=== PATIENT | female | born 2000 | race Caucasian/White ===

== ENCOUNTER 2022-01-04 14:10 | Emergency (ER) | payer MEDICAID ==
[~2022-01-04] VITALS: Ht 157.5 cm; Wt 59.0 kg
[2022-01-04 14:15] VITALS: BP_SYST 113
--- NOTE | 2022-01-04 14:20 | NUR ---
Patient triaged and placed in waiting room. VSS and patient appears in no acute distress at this time. Accompanied by FRIENDS, awaiting available bed, and MD notified of need for MSE.
--- NOTE | 2022-01-04 14:29 | NUR ---
PT STATES COUGH, DIZZY, FEVERS, AND SORE THROAT FROM COUGHING. PT STATES SHE LIVES IN THE [place]ORMS AT [facility] [employer] AND EVERYONE THERE IS SICK. PT STATES SHE JUST DOESN'T SEEM TO BE GETTING BETTER.
--- NOTE | 2022-01-04 16:01 | NUR ---
DR COSME OUT TO TRIAGE ROOM FOR RE-EVALUATION
[2022-01-04] MEDS ORDERED: IBUP-1969 PO (16:13)
[2022-01-04] MEDS ORDERED: PSEU30TA36 PO (16:13)
--- NOTE | 2022-01-04 16:26 | NUR ---
Patient given written and verbal discharge instructions and verbalizes understanding. ER MD discussed with patient the results and treatment provided. Patient in stable condition. ID arm band removed. Rx of IBUPROFEN, SUDAFED given. Patient educated on pain management and to follow up with PMD. Pain Scale 0/10. Opportunity for questions provided and answered. Medication side effect fact sheet provided.
== END 2022-01-04 17:15 | disposition home or self-care (01) ==
LOC: SED 14:10
DX: J40 Bronchitis, not specified as acute or chronic (principal); R05.9 Cough, unspecified; R09.81 Nasal congestion; J02.9 Acute pharyngitis, unspecified; Z79.899 Other long term (current) drug therapy; Z20.822 Contact with and (suspected) exposure to COVID-19
CPT/HCPCS: 36415; 71045; 99284